=== PATIENT | female | born 1965 | race Hispanic/Latino ===

== ENCOUNTER 2023-03-28 12:17 | Emergency (ER) | payer OTHER ==
[~2023-03-28] VITALS: Ht 154.9 cm; Wt 94.8 kg
[2023-03-28] MEDS ORDERED: LACTATED RINGER'S 1,000 ML INJ ONE (12:45)
[2023-03-28] MEDS ORDERED: ONDANSETRON HCL INJ 2MG/ML 2ML 2 MG/ML VIAL IV STA (12:45)
[2023-03-28 13:19] LABS: BASOPHILS # (AUTO) 0.1 (0.0-0.1); BASOPHILS % 1.1 % (0.0-1.0); EOSINOPHILS # (AUTO) 0.3 (0.0-0.4); EOSINOPHILS % 3.8 % (0.0-6.0); HEMATOCRIT 43.8 % (34.2-44.1); HEMOGLOBIN 14.3 g/dL (12.0-16.0); LYMPHOCYTES # (AUTO) 2.3 (1.0-3.2); LYMPHOCYTES % 32.2 % (18.0-39.1); MEAN CORPUSCULAR HGB CONC 32.6 g/dL (31-35); MEAN CORPUSCULAR VOLUME 82.6 fL (81-99); MONOCYTES # (AUTO) 0.7 (0.2-0.8); MONOCYTES % 9.6 % (4.4-11.3); NEUTROPHILS # (AUTO) 3.8 (2.1-6.9); PLATELET COUNT 239 x10e3/uL (140-360); RED CELL DISTRIBUTION WIDTH 13.2 % (11.7-14.4)
[2023-03-28 13:43] LABS: LIPASE 17 U/L (8-78)
[2023-03-28] MEDS ORDERED: LACTATED RINGER'S 1,000 ML ONE (13:46)
[2023-03-28 13:49] LABS: ALBUMIN 3.7 g/dL (3.5-5.0); ALBUMIN/GLOBULIN RATIO 1.1 (0.8-2.0); ANION GAP 12.7 mmol/L (8-16); CALCIUM 8.9 mg/dL (8.4-10.2); CREATININE, SERUM 0.67 mg/dL (0.57-1.11); POTASSIUM 3.7 mmol/L (3.5-5.1)
[2023-03-28] MEDS ORDERED: ONDANSETRON ODT4 MG PO (14:00)
[2023-03-28 15:17] VITALS: O2SAT 100
== END 2023-03-28 15:35 | disposition home or self-care (01) ==
LOC: ER 12:22
DX: R07.89 Other chest pain (principal); R19.7 Diarrhea, unspecified; R11.0 Nausea; R94.31 Abnormal electrocardiogram [ECG] [EKG]
CPT/HCPCS: 36415; 71045; 80053; 83690; 83880; 84484; 85025; 93005; 99284; J2405; J7121

== ENCOUNTER 2024-06-03 17:26 | Emergency (ER) | payer OTHER ==
[~2024-06-03] VITALS: Ht 154.9 cm; Wt 94.8 kg
[~2024-06-03 17:26] MED LIST: ONDANSETRON ODT4 MG PO
[2024-06-03 17:36] VITALS: PULSE 73; RESP 18; TEMP 97.8
[2024-06-03] MEDS ORDERED: ORPHENADRINE C100 MG PO (19:09)
[2024-06-03] MEDS: ORPHENADRINE CITRATE 30 MG/ML VIAL IM ONE (19:13)
[2024-06-03] MEDS ORDERED: KETOROLAC TROMETHAMINE 60 MG/2 ML VIAL ONE (19:13)
[2024-06-03] MEDS: KETOROLAC TROMETHAMINE 60 MG/2 ML VIAL IM ONE (19:14)
[2024-06-03 20:04] VITALS: BP 127/86; O2SAT 96
== END 2024-06-03 20:05 | disposition home or self-care (01) ==
LOC: ER 19:01
DX: M54.42 Lumbago with sciatica, left side (principal); E11.9 Type 2 diabetes mellitus without complications
CPT/HCPCS: 99283; J1885; J2360